=== PATIENT | male | born 1965 | race Caucasian/White ===

== ENCOUNTER → 2019-01-11 09:03 | Outpatient (CLI) | payer BC, SELFPAY ==
[2019-01-11 14:05] LABS: Basophils # 0.1 K/mm3 (0-0.2); Basophils % 0.9 % (0.1-2.0); Eosinophils # 0.1 K/mm3 (0.0-0.4); Eosinophils % 1.8 % (0.1-12.0); Hematocrit 44.7 % (42.0-52.0); Hemoglobin 14.8 g/dL (14.1-18.0); Mean Corpuscular HGB Conc 33.1 g/dL (31.8-35.4); Mean Corpuscular Hemoglobin 29.6 pg (27.0-31.2); Mean Corpuscular Volume 89.3 fl (80-94); Mean Platelet Volume 8.5 fl (7.4-10.4); Monocytes # 0.4 K/mm3 (0.1-1.0); Monocytes % 5.8 % (1.7-9.3); Neutrophils # 4.6 K/mm3 (1.8-7.8); Neutrophils % 74.5 % (37.0-80.0); Platelet Count 255 K/mm3 (142-424); Red Blood Count 5.01 M/mm3 (4.60-6.20); White Blood Count 6.2 K/mm3 (4.8-10.8)
[2019-01-11 14:32] LABS: Alanine Aminotransferase 25 U/L (12-78); Albumin Level 3.9 gm/dL (3.4-5.0); Albumin/Globulin Ratio 1.1 (1.1-1.8); Alkaline Phosphatase 41 U/L (46-116); Amylase 34 U/L (25-115); Anion Gap 14.6 mEq/L (5-15); Aspartate Amino Transferase 15 U/L (15-37); Bilirubin,Total 0.8 mg/dL (0.2-1.0); Blood Urea Nitrogen 21 mg/dL (7-18); Calcium 8.7 mg/dL (8.5-10.1); Carbon Dioxide 24 mmol/L (21.0-32.0); Chloride 108 mmol/L (98-107); Chol/HDL Ratio 5.2 (1-3.5); Cholesterol 172 mg/dL (140-200); Creatinine,Serum 1.22 mg/dL (0.70-1.30); Estimated Glomerular Filt Rate 62 ml/min (>60); GFR (African American) 75 ML/MIN (>60); Globulin 3.4 gm/dl (1.3-3.2); Glucose 116 mg/dL (74-106); HDL Cholesterol 33 mg/dL (27-67); LDL Cholesterol 122 mg/dL (0-130); Lipase 146 u/L (73-393); Potassium 4.6 mmoL/L (3.5-5.1); Sodium 142 mmol/L (136-145); Total Protein,Serum 7.3 gm/dL (6.4-8.2); Triglycerides 87 mg/dL (30-200); VLDL Cholesterol 17 mg/dL (0-40)
== END ==
PROVIDERS: PCP Internal Medicine Adolescent Medicine; Visit Provider Internal Medicine Adolescent Medicine
DX: R10.84 Generalized abdominal pain (principal); E78.5 Hyperlipidemia, unspecified
CPT/HCPCS: 36415; 80053; 80061; 82150; 83690; 85025

== ENCOUNTER → 2019-01-12 07:40 | Outpatient (CLI) | payer BC, SELFPAY ==
[2019-01-15 18:27] LABS: H. pylori Stool Ag, EIA Negative (Negative)
== END ==
PROVIDERS: PCP Internal Medicine Adolescent Medicine; Visit Provider Internal Medicine Adolescent Medicine
DX: R10.84 Generalized abdominal pain (principal); E78.5 Hyperlipidemia, unspecified
CPT/HCPCS: 87338

== ENCOUNTER → 2021-03-04 13:40 | Outpatient (CLI) | payer BC, SELFPAY ==
[2021-03-04 13:49] LABS: Basophils # 0.1 K/mm3 (0-0.2); Basophils % 1.4 % (0.1-2.0); Eosinophils # 0.4 K/mm3 (0.0-0.4); Eosinophils % 5.7 % (0.1-12.0); Hematocrit 45.3 % (42.0-52.0); Hemoglobin 15.1 g/dL (14.1-18.0); Lymphocytes # 1.3 K/mm3 (0.7-4.5); Lymphocytes % 18.3 % (10-50); Mean Corpuscular HGB Conc 33.3 g/dL (31.8-35.4); Mean Corpuscular Hemoglobin 29.6 pg (27.0-31.2); Mean Corpuscular Volume 88.7 fl (80-94); Mean Platelet Volume 9.4 fl (7.4-10.4); Monocytes # 0.5 K/mm3 (0.1-1.0); Monocytes % 6.4 % (1.7-9.3); Neutrophils # 4.8 K/mm3 (1.8-7.8); Neutrophils % 68.2 % (37.0-80.0); Platelet Count 265 K/mm3 (142-424); Red Blood Count 5.11 M/mm3 (4.60-6.20); White Blood Count 7.1 K/mm3 (4.8-10.8)
[2021-03-04 14:00] LABS: Alanine Aminotransferase 19 U/L (12-78); Albumin Level 4.3 g/dl (3.5-5.0); Albumin/Globulin Ratio 1.5 (1.1-1.8); Alkaline Phosphatase 51 U/L (38-126); Anion Gap 11.9 mEq/L (5-15); Aspartate Amino Transferase 24 U/L (17-59); Bilirubin,Total 0.8 mg/dl (0.2-1.3); Blood Urea Nitrogen 14 mg/dl (9-20); Calcium 8.9 mg/dl (8.4-10.2); Carbon Dioxide 27 mmol/L (22.0-30.0); Chloride 105 mmol/L (98-107); Chol/HDL Ratio 4.5 (1-3.5); Cholesterol 177 mg/dl (140-200); Estimated Glomerular Filt Rate 77 ml/min (>60); GFR (African American) 94 ML/MIN (>60); Globulin 2.9 g/dL (1.3-3.2); Glucose 122 mg/dl (74-100); HDL Cholesterol 39 mg/dl (40-60); Potassium 4.9 mmoL/L (3.5-5.1); Sodium 139 mmol/L (136-145); Total Protein,Serum 7.2 g/dl (6.3-8.2); Triglycerides 127 mg/dl (30-150); VLDL Cholesterol 25 mg/dL (0-40)
[2021-03-04 14:11] LABS: Direct LDL Cholesterol 110.81 mg/dL (100-129)
[2021-03-04 14:36] LABS: Hemoglobin A1C 5.5 % (4.0-6.0)
[2021-03-04 14:47] LABS: Thyroid Stimulating Hormone 2.29 uIU/mL (0.465-4.68)
== END ==
LOC: LAB.DROPOF 13:41
PROVIDERS: Visit Provider Internal Medicine Adolescent Medicine
DX: I48.0 Paroxysmal atrial fibrillation (principal); R73.9 Hyperglycemia, unspecified
CPT/HCPCS: 80053; 80061; 83036; 84443; 85025

== ENCOUNTER → 2021-08-05 18:50 | Outpatient (CLI) | payer BC, SELFPAY ==
[2021-08-05 19:18] LABS: Basophils # 0.1 K/mm3 (0-0.2); Basophils % 1.3 % (0.1-2.0); Eosinophils # 0.2 K/mm3 (0.0-0.4); Eosinophils % 3.7 % (0.1-12.0); Hematocrit 48.7 % (42.0-52.0); Hemoglobin 15.4 g/dL (14.1-18.0); Lymphocytes # 1.1 K/mm3 (0.7-4.5); Lymphocytes % 18.8 % (10-50); Mean Corpuscular HGB Conc 31.7 g/dL (31.8-35.4); Mean Corpuscular Volume 94.7 fl (80-94); Mean Platelet Volume 9.4 fl (7.4-10.4); Monocytes # 0.4 K/mm3 (0.1-1.0); Monocytes % 6.2 % (1.7-9.3); Neutrophils # 4.1 K/mm3 (1.8-7.8); Platelet Count 257 K/mm3 (142-424); Red Blood Count 5.14 M/mm3 (4.60-6.20); Red Cell Distribution Width 12.8 % (11.5-17.5); White Blood Count 5.9 K/mm3 (4.8-10.8)
[2021-08-05 19:48] LABS: Alanine Aminotransferase 15 U/L (12-78); Albumin/Globulin Ratio 1.2 (1.1-1.8); Alkaline Phosphatase 51 U/L (38-126); Anion Gap 12.1 mEq/L (5-15); Aspartate Amino Transferase 25 U/L (17-59); Bilirubin,Total 0.8 mg/dl (0.2-1.3); Blood Urea Nitrogen 15 mg/dl (9-20); Calcium 8.8 mg/dl (8.4-10.2); Carbon Dioxide 27 mmol/L (22.0-30.0); Chloride 105 mmol/L (98-107); Chol/HDL Ratio 5.5 (1-3.5); Cholesterol 208 mg/dl (140-200); Estimated Glomerular Filt Rate 87 ml/min (>60); GFR (African American) 105 ML/MIN (>60); Globulin 3.3 g/dL (1.3-3.2); Glucose 126 mg/dl (74-100); HDL Cholesterol 38 mg/dl (40-60); Potassium 5.1 mmoL/L (3.5-5.1); Sodium 139 mmol/L (136-145); Total Protein,Serum 7.3 g/dl (6.3-8.2); Triglycerides 130 mg/dl (30-150); VLDL Cholesterol 26 mg/dL (0-40)
[2021-08-05 19:59] LABS: Direct LDL Cholesterol 132.55 mg/dL (100-129)
[2021-08-05 20:02] LABS: Hemoglobin A1C 7.7 % (4.0-6.0)
== END ==
PROVIDERS: Visit Provider Internal Medicine Adolescent Medicine
DX: I10 Essential (primary) hypertension (principal); R73.9 Hyperglycemia, unspecified
CPT/HCPCS: 80053; 80061; 83036; 85025

== ENCOUNTER → 2022-07-08 13:39 | Outpatient (CLI) | payer BC, SELFPAY ==
--- NOTE | 2022-07-08 13:43 | US_ITS ---
FINAL REPORT CLINICAL HISTORY: LT CERVICAL LYMPHOHADENOPATHY-- palp nodule lt neck FINDINGS: THYROID NECK SOFT TISSUE Limited sonographic images were obtained of the soft tissues of the neck. There is a hypoechoic well-circumscribed mass in the left submandibular grand measuring 4.4 x 2.3 cm. This appears prominent and asymmetrically larger and more hypoechoic than the right submandibular gland. The parotid glands are unremarkable. IMPRESSION: Hypoechoic left submandibular mass. Recommend infused neck CT for better characterization. Reviewed, Interpreted and Dictated by Jonas Horton MD Transcribed by Tye Harrell Authenticated and [facility]
--- NOTE | 2022-07-08 13:46 | XR_ITS ---
FINAL REPORT TECHNIQUE: Chest PA & Lateral CLINICAL HISTORY: LT CERVICAL LYMPHADENOPATHY COMPARISON: August 29, 2018 FINDINGS: 2 views of the chest were performed. The heart size is normal. There is a calcified left hilar lymph node. There is no acute cardiopulmonary process. There are no pleural effusions. There is no pneumothorax. The bony thorax appears intact. IMPRESSION: No acute cardiopulmonary process. Reviewed, Interpreted and Dictated by Jonas Horton MD Transcribed by Tye Harrell Authenticated and [facility]
== END ==
PROVIDERS: PCP Internal Medicine Adolescent Medicine; Visit Provider Nurse Practitioner Family
DX: R59.0 Localized enlarged lymph nodes (principal)
CPT/HCPCS: 71046; 76536

== ENCOUNTER → 2022-07-10 13:52 | Outpatient (CLI) | payer BC, SELFPAY ==
[2022-07-10 15:14] LABS: Blood Urea Nitrogen 15 mg/dl (9-20); Estimated Glomerular Filt Rate 87 ml/min (>60); GFR (African American) 105 ML/MIN (>60)
== END ==
PROVIDERS: PCP Internal Medicine Adolescent Medicine; Visit Provider Nurse Practitioner Family
DX: Z01.812 Encounter for preprocedural laboratory examination (principal); R59.0 Localized enlarged lymph nodes
CPT/HCPCS: 36415; 82565; 84520

== ENCOUNTER → 2022-07-13 10:29 | Outpatient (CLI) | payer BC, SELFPAY ==
--- NOTE | 2022-07-13 10:43 | CT_ITS ---
FINAL REPORT TECHNIQUE: Thin section axial CT images with coronal and sagittal reformats were performed through neck after the administration of IV contrast. This study was performed with techniques to keep radiation doses as low as reasonably achievable, (ALARA). CLINICAL HISTORY: LEFT CERVICAL LYMPHADENOPATHY. BB placed on left neck mass. ultrasound last week. FINDINGS: There is an enhancing soft tissue mass in the left submandibular region measuring at 3.2 x 2.8 x 5.2 cm. Although this mass abuts the left submandibular gland it is felt likely unrelated to the submandibular gland. There is no other mass or adenopathy. There is prominence of the left tonsillar pillar which could be related to hypertrophy or tumor. There is mild asymmetry in the vocal cords with mild enlargement of the left laryngeal ventricle. Proximal vocal cord paralysis not excluded. The thyroid is unremarkable. Limited images of the lung apices are unremarkable. No acute osseous abnormality is identified. IMPRESSION: Dominant soft tissue mass in the left submandibular region which could be due to primary tumor or metastatic adenopathy. This is amenable to biopsy. Prominent left tonsillar pillar and asymmetry to the vocal cords. Recommend correlation with direct visualization. Reviewed, Interpreted and Dictated by Cameron Nunes MD Transcribed by Delmy Crawley Authenticated and [facility]
== END ==
PROVIDERS: PCP Internal Medicine Adolescent Medicine; Visit Provider Nurse Practitioner Family
DX: R59.0 Localized enlarged lymph nodes (principal)
CPT/HCPCS: 70491; Q9967

== ENCOUNTER → 2022-07-20 08:48 | Outpatient (CLI) | payer BC, SELFPAY ==
--- NOTE | 2022-07-20 08:50 | US_ITS ---
FINAL REPORT CLINICAL HISTORY: .FNA left neck lymph node -- Navid Olivarez FINDINGS: Ultrasound guided left neck lymph node biopsy. HISTORY: Left neck mass. PROCEDURE: After informed consent was obtained and a time-out was performed, the patient was prepped and draped in usual sterile fashion over the left neck. Utilizing local anesthesia and sterile technique with a 25-gauge needle, access to the lesion was obtained. Four passes were made with samples placed in CytoLyt and RPMI. The patient received no conscious sedation. The patient tolerated the procedure well and left the department in good condition. IMPRESSION: Status post ultrasound guided biopsy of a left neck mass without immediate complication. Films reviewed , interpreted and dictated by Dr. Grullon Transcribed by Navid Garg PA-C. Reviewed, Interpreted and Dictated by Puma Grullon III, MD Transcribed by ELIANE Mcnally Authenticated and [facility]
== END ==
PROVIDERS: PCP Internal Medicine Adolescent Medicine; Visit Provider Otolaryngology
DX: R59.0 Localized enlarged lymph nodes (principal)
CPT/HCPCS: 10005; 88173; 88305

== ENCOUNTER 2024-11-13 11:04 | Day surgery (SDC) | payer BC, SELFPAY ==
[2024-11-07 11:46] VITALS: BMI 28.5
[2024-11-13 12:21] VITALS: BP 116/77; PULSE 55; RESP 18; TEMP 36.1; O2SAT 99
[2024-11-13 12:29] LABS: POC Glucose,Bedside 96 (70-110)
--- NOTE | 2024-11-13 12:58 | P.PNANES_ITS ---
[facility] Disclaimer: The information contained in this section may have been updated after the patient was seen, as this information can be updated by other users. Medical History (Updated 11/07/24 @ 11:46 by Arabella Byers RN) History of COVID-19 Anxiety Tfwsv-Hntrgejzb-Pfaso syndrome Diabetes Tonsil cancer History of gastroesophageal reflux (GERD) Hyperlipidemia Hypertension Lymphadenopathy of left cervical region Enlarged tonsils Surgical History History of repair of vocal cord History of tonsillectomy Family History Other Diabetes Social History Smoking Status: Former smoker alcohol intake: current alcohol intake frequency: a few times a month substance use type: denies use current occupational status: employed Travel in the last 8 weeks: None household members: spouse housing: house current occupation: self employed current occupational exposures/hazards: No caffeine: Yes [facility] Anesthesia Checklist Patient Identification Patient Identification: Verbal (Name & ) Structural Data Admitted From: Home Planned Operative Procedure/s: colonoscopy Consent for Planned Operative Procedure(s) Verified: Yes NPO Status Verified Time NPO: 00:00 Airway Assessment Mallampati Score:: Class III C-Spine Mobility Assessed: Yes TMJ Mobility Assessed: Yes Dentition: Good Dentition Neurological Assessment Level of Consciousness: Awake, Alert and Appropriate Anesthesia Plan Anesthesia Risk discussed: Yes Anesthesia Plan: Verified ASA Class: III Anesthesia Type: MAC
--- NOTE | 2024-11-13 13:18 | P.HP_ITS ---
History of Present Illness *Admission Date: 11/13/24 *Reason for visit:: Personal history of adenomatous colon polyps *History of present illness: Mr. Meier is a 59-year-old gentleman with a personal history of adenomatous polyps. The patient did have a large pedunculated 27 mm rectosigmoid adenoma removed in December 2019 along with 2 diminutive 4 mm adenomatous at time of colonoscopy. He is here for surveillance colonoscopy. The examination is deemed medically necessary for surveillance colonoscopy. The patient has been seen, interviewed and examined prior to the procedure by both myself and the anesthesia provider. [facility] Disclaimer: The information contained in this section may have been updated after the patient was seen, as this information can be updated by other users. Medical History (Updated 11/13/24 @ 13:20 by Luke Cooper II, MD) History of COVID-19 Anxiety Ylurl-Chttlsxjj-Bcytu syndrome Diabetes Tonsil cancer History of gastroesophageal reflux (GERD) Hyperlipidemia Hypertension Lymphadenopathy of left cervical region Enlarged tonsils Surgical History History of repair of vocal cord History of tonsillectomy Family History Other Diabetes Social History (Updated 11/13/24 @ 12:59 by Navid Guillermo CRNA) Smoking Status: Former smoker alcohol intake: current alcohol intake frequency: a few times a month substance use type: denies use current occupational status: employed Travel in the last 8 weeks: None household members: spouse housing: house current occupation: self employed current occupational exposures/hazards: No caffeine: Yes Have you lived/traveled outside [place] in past 30 days?: No Contact w/someone who lives/traveled outside [place] past 30 days?: No Exposure to someone with infectious disease in past 14 days?: No Do you have a fever (greater than 100.4 F or 38 C)?: No Have you tested positive for COVID-19: Yes Exposed to someone with COVID-19 in past 14 days?: No Do you have a sore throat?: No Do you have a cough?: No Do you have any weakness?: No Are you experiencing any nausea/vomitting?: No Do you have any diarrhea?: No Are you experiencing any unusual bleeding?: No Do you have any muscle aches/pain?: No Do you have any abdominal pain?: No Are you experiencing loss of taste or smell?: No Other Medical History Have you received the Flu Vaccine for this season: No Have you received the Pneumonia Vaccine: No Review of Systems Review of Systems Review of systems (narrative): Negative *Cardiovascular Comments: Negative *Gastrointestinal Comments: Negative *Genitourinary Comments: Negative *Musculoskeletal Comments: Negative *Neurologic Comments: Negative Meds Home Medications and Allergies Home Medications ?Medication ?Instructions ?Recorded ?Confirmed ?Type alprazolam 0.5 mg tablet 0.75 mg PO DAILY sleep 08/29/18 11/13/24 History propranolol 20 mg tablet 10 mg PO BID htn 08/29/18 11/13/24 History dapagliflozin propanediol 10 mg 10 mg PO DAILY 07/15/22 11/13/24 History tablet (Farxiga) cetirizine 10 mg tablet (Zyrtec) 10 mg PO DAILY 11/07/24 11/13/24 History omeprazole magnesium 20 mg 20 mg PO DAILY 11/07/24 11/13/24 History tablet,delayed release (Prilosec OTC) New Prescriptions to Start Prescriptions: Allergies Allergy/AdvReac Type Severity Reaction Status Date / Time Sulfa (Sulfonamide Allergy Intermediate I-HIVES Verified 11/13/24 12:28 Antibiotics) (SULFA (SULFONAMIDE ANTIBIOTICS)) Exam Data for Last 24 hours Vital signs and Labs for Last 24 Hours: Temp Pulse Resp BP Pulse Ox O2 Del Method 97.0 F L 55 L 18 116/77 99 Room Air 11/13/24 12:21 11/13/24 12:21 11/13/24 12:21 11/13/24 12:21 11/13/24 12:21 11/13/24 12:21 Laboratory Results - last 24 hr 11/13/24 12:21: POC Glucose 96 *Routine HEENT Exam Head: Present normocephalic Eye: Present EOMI and PERRL ENT: Present mucous membranes moist *Routine Neck Exam Neck: Present supple *Routine Respiratory Exam Respiratory: Present CTA bilaterally *Routine Cardiovascular Exam Cardiovascular: Present RRR *Routine Abdominal Exam Abdominal: Present soft and normoactive bowel sounds; Absent tenderness *Routine Rectal Exam Rectal:: deferred *Routine Genitalia Exam Genitalia:: deferred *Routine Extremities Exam Extremities: Absent cyanosis, clubbing or edema *Routine Skin Exam Skin: Present warm; Absent rash *Routine Neurological Exam Neurological: Present alert and oriented X3 Assessment and Plan *Assessment and plan (1) Personal history of adenomatous and serrated colon polyps: Status: Acute Category: Medical Code(s): Z86.0101 - Personal history of adenomatous and serrated colon polyps Plan A/P: 1. Personal history of larger advanced adenomatous polyps is the preprocedural diagnosis. The patient will be anesthetized/sedated using MAC sedation. The patient has been seen and examined. Cardiac and lung assessment prior to the examination is stable. Proceed with planned surveillance colonoscopy
[2024-11-13 13:27] VITALS: O2SAT 99
--- NOTE | 2024-11-13 13:27 | HMH.PROCNOTE ---
[facility] Procedure Note Date: 11/13/24 Time: 13:39 Procedure Note:: Colonoscopy Procedure Report: Colonoscopy with cold snare polypectomy Endoscopist: Luke Cooper II, MD Referring physician: Bro Bar M.D. Date of Procedure: November 13, 2024 Equipment: Olympus 190 variable stiffness pediatric colonoscope Sedation: MAC sedation Indication: Mr. Meier is a 59-year-old gentleman who is here for follow-up surveillance colonoscopy. He did have a colonoscopy in December 2019 and had a larger 27 mm pedunculated rectosigmoid tubular adenoma and 2 smaller (4 mm) tubular adenomas that were removed. He reports no abdominal pain, weight loss, change in his bowel habits or rectal bleeding. He reports no family history of colon cancer. 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 He has been in remission. He does get some minor hemorrhoidal prolapse but no hemorrhoidal bleeding. Procedure: Prior to the procedure, a history and physical exam was performed, and patient's medications and allergies were reviewed. The risks, benefits and alternatives of the sedation and procedure were discussed with the patient. All questions were answered and informed consent was obtained. The patient was brought to the procedure room. Patient identification and proposed procedure were verified by the physician and the nurse. The patient was placed in a left lateral decubitus position and the scope was passed under direct vision. Throughout the procedure, the patient's blood pressure, pulse, and oxygen saturations were monitored continuously. The colonoscopy was accomplished without difficulty. The patient tolerated the procedure well. Findings: On digital rectal examination there was normal rectal tone. There were no external hemorrhoids. The colonoscope was introduced through the anal canal to the rectum and advanced to the cecum. The ileocecal valve and appendiceal orifice were identified. The scope was advanced a short distance into the ileum which appeared grossly normal. The scope was then withdrawn into the colon. The cecum, ascending and transverse colon and mucosa were grossly normal. There was a single 3 to 4 mm descending polyp that was removed via cold snare polypectomy. There were scattered extensive diverticuli throughout the descending and sigmoid colon (LEFT colon). There was some haustral edema in the sigmoid colon suggestive of chronic sigmoid diverticulitis. The rectum itself was normal. Upon retroflexion within the rectum there were grade 2-3 internal hemorrhoids. The preparation was excellent throughout with [place] Preparation Score of 9. The cecal time was 12 minutes. Impression: 1. Diminutive 3 to 4 mm descending colon polyp 2. Extensive left-sided diverticulosis with evidence of mild chronic sigmoid diverticulitis 3. Grade 2-3 internal hemorrhoids Plan: I will follow-up the polyp histology and recommend repeat surveillance colonoscopy again in 7 years. I would encourage psyllium bulking fiber supplementation on a long-term daily maintenance basis.
[2024-11-13 13:43] VITALS: BP 108/57; PULSE 64; RESP 18; TEMP 36.1; O2SAT 98
[2024-11-13 13:53] VITALS: BP 118/78; PULSE 59; RESP 18; O2SAT 96
[2024-11-13 14:03] VITALS: BP 110/67; PULSE 53; RESP 18; O2SAT 96
[2024-11-13 14:24] VITALS: BP 132/84; PULSE 52; RESP 18; O2SAT 95
== END 2024-11-13 14:25 | disposition home or self-care (01) ==
PROVIDERS: PCP Internal Medicine Adolescent Medicine; Visit Provider Internal Medicine Gastroenterology
PROC: (CPT 45385; principal; 2024-11-13 12:30)
DX: K63.5 Polyp of colon (principal); K57.30 Diverticulosis of large intestine without perforation or abscess without bleeding; K57.32 Diverticulitis of large intestine without perforation or abscess without bleeding; K64.8 Other hemorrhoids; Z86.0101 Personal history of adenomatous and serrated colon polyps
CPT/HCPCS: 45385; 82962